=== PATIENT | male | born 1995 | race Caucasian/White ===

== ENCOUNTER 2021-05-26 10:32 | Emergency (ER) | payer OTHER ==
[~2021-05-26] VITALS: Ht 177.8 cm; Wt 107.0 kg
[2021-05-26 10:43] VITALS: BP 157/94
--- NOTE | 2021-05-26 10:50 | NUR ---
PATIENT AMBULTAED TO BED 06 WITH STEADY/EVEN GAIT, ACCOMPANIED BY TWO DAUGHTERS.
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
--- NOTE | 2021-05-26 11:59 | NUR ---
PA SCHROEDER AT BEDSIDE EVALUATING PT
[2021-05-26] MEDS ORDERED: CYCL-711 PO (12:34)
[2021-05-26] MEDS ORDERED: IBUP-2213 PO (12:34)
--- NOTE | 2021-05-26 12:40 | NUR ---
Patient discharged with v/s stable. Written and verbal after care instructions given and explained. Patient alert, oriented and verbalized understanding of instructions. Ambulatory with steady gait. All questions addressed prior to discharge. ID band removed. Patient advised to follow up with PMD. Rx of Flexeril, Ibuprofen given. Patient educated on indication of medication including possible reaction and side effects. Opportunity to ask questions provided and answered.
== END 2021-05-26 12:40 | disposition home or self-care (01) ==
LOC: MED 10:32
DX: S39.012A Strain of muscle, fascia and tendon of lower back, initial encounter (principal); S29.011A Strain of muscle and tendon of front wall of thorax, initial encounter; R03.0 Elevated blood-pressure reading, without diagnosis of hypertension; Z79.899 Other long term (current) drug therapy; V49.49XA Driver injured in collision with other motor vehicles in traffic accident, initial encounter; Y93.89 Activity, other specified; Y92.410 Unspecified street and highway as the place of occurrence of the external cause; Y99.8 Other external cause status
CPT/HCPCS: 99283